=== PATIENT | female | born 1995 | race Caucasian/White ===

== ENCOUNTER 2017-07-01 19:46 | Emergency (ER) | payer OTHER ==
[~2017-07-01] VITALS: Ht 162.6 cm; Wt 84.5 kg
[~2017-07-01 19:46] MED LIST: DOCUSATE SODIU100 MG PO; ENDOCET 5-3251 EACH PO; IBUPROFEN800 MG PO; PRENATAL TABLE1 EAC3 PO
[2017-07-01 20:17] LABS: HEMATOCRIT 35.2 % (36.0-46.0); HEMOGLOBIN 11.6 G/DL (11.9-15.5); PLATELET COUNT 277 K/uL (156-360); RBC DIS.WIDTH-CV 14.2 % (11.8-14.6); RBC DIS.WIDTH-SD 45.7 % (39-53); WHITE BLOOD COUNT 6.9 K/uL (4.1-10.2)
[2017-07-02] MEDS ORDERED: MOTRIN800 MG PO (00:19)
[2017-07-02 00:40] VITALS: BP 130/85
== END 2017-07-02 00:40 | disposition home or self-care (01) ==
LOC: RME 19:46 → EME 19:46 → RME 07-02 00:40
PROVIDERS: Physician Assistant
DX: O04.6 Delayed or excessive hemorrhage following (induced) termination of pregnancy (principal); R42 Dizziness and giddiness; F17.200 Nicotine dependence, unspecified, uncomplicated
CPT/HCPCS: 76856; 84702; 85027; 99281; 99285; J1885; J3010

== ENCOUNTER 2017-07-30 18:22 | Emergency (ER) | payer OTHER ==
[~2017-07-30] VITALS: Ht 162.6 cm; Wt 77.4 kg
[~2017-07-30 18:22] MED LIST changes: +MOTRIN800 MG PO
[2017-07-30] MEDS ORDERED: NARCAN4 MG NS (22:46)
[2017-07-30 23:15] VITALS: BP 125/79
== END 2017-07-30 23:16 | disposition home or self-care (01) ==
LOC: EME 18:22
DX: T40.1X1A Poisoning by heroin, accidental (unintentional), initial encounter (principal); R00.0 Tachycardia, unspecified; F17.200 Nicotine dependence, unspecified, uncomplicated
CPT/HCPCS: 99281; 99285; J2310; J7040

== ENCOUNTER 2017-08-29 02:01 | Emergency (ER) | payer OTHER ==
[~2017-08-29] VITALS: Ht 162.6 cm; Wt 80.1 kg
[~2017-08-29 02:01] MED LIST changes: +NARCAN4 MG NS
[2017-08-29 02:22] LABS: HEMATOCRIT 37.4 % (36.0-46.0); HEMOGLOBIN 12.3 G/DL (11.9-15.5); MCH 28.3 PG (29.0-34.0); MCHC 32.9 G/DL (30.0-36.0); MCV 86.2 FL (83-99); PLATELET COUNT 271 K/uL (156-360); RBC DIS.WIDTH-SD 40.8 % (39-53); RED BLOOD COUNT 4.34 M/uL (3.80-5.20); WHITE BLOOD COUNT 7.6 K/uL (4.1-10.2)
[2017-08-29 02:35] LABS: CHLORIDE 108 mEq/L (99-109); POTASSIUM 3.6 mEq/L (3.7-5.4); SODIUM 141 mEq/L (136-147)
[2017-08-29 02:37] LABS: GLUCOSE 101 mg/dL (70-99)
[2017-08-29 02:40] LABS: CREATININE 0.7 mg/dL (0.6-1.3); GFR ESTIMATE (CALCULATED) > 59 mL/min/
[2017-08-29 02:41] LABS: UREA NITROGEN (BUN) 11 mg/dL (9-23)
[2017-08-29 02:49] LABS: QUANTITATIVE HCG < 4.0 MIU/ML
[2017-08-29 03:11] LABS: D-DIMER ELISA < 150.00 ng/mLDDU (<230)
[2017-08-29] MEDS ORDERED: SUDAFED PE PRE1 EAC1 PO (03:40)
[2017-08-29 03:49] VITALS: BP 118/80
== END 2017-08-29 04:16 | disposition home or self-care (01) ==
LOC: EME 02:01
DX: R07.89 Other chest pain (principal); N63.20 Unspecified lump in the left breast, unspecified quadrant; J01.90 Acute sinusitis, unspecified
CPT/HCPCS: 71046; 80048; 84702; 85027; 85379; 93005; 94640; 99281; 99284; J1885

== ENCOUNTER 2018-02-10 23:48 | Emergency (ER) | payer SELFPAY ==
[~2018-02-10] VITALS: Ht 162.6 cm; Wt 76.6 kg
[~2018-02-10 23:48] MED LIST changes: +SUDAFED PE PRE1 EAC1 PO
[2018-02-11 01:04] LABS: HEMATOCRIT 34.8 % (36.0-46.0); HEMOGLOBIN 11.3 G/DL (11.9-15.5); MCH 28.2 PG (29.0-34.0); MCHC 32.5 G/DL (30.0-36.0); MCV 86.8 FL (83-99); PLATELET COUNT 244 K/uL (156-360); RBC DIS.WIDTH-CV 13.6 % (11.8-14.6); RBC DIS.WIDTH-SD 43.5 % (39-53); RED BLOOD COUNT 4.01 M/uL (3.80-5.20); WHITE BLOOD COUNT 7.8 K/uL (4.1-10.2)
[2018-02-11 01:16] LABS: CHLORIDE 105 mEq/L (99-109); POTASSIUM 3.9 mEq/L (3.7-5.4); SODIUM 138 mEq/L (136-147)
[2018-02-11 01:18] LABS: APPEARANCE CLOUDY ((CLEAR)); BILIRUBIN NEGATIVE; BLOOD NEGATIVE; COLOR YELLOW ((YELLOW)); GLUCOSE (STRIP) NEGATIVE; KETONES NEGATIVE; LEUKOCYTES TRACE; NITRITE NEGATIVE; PROTEIN (STRIP) NEGATIVE; SPECIFIC GRAVITY 1.016 (1.000-1.030); UROBILINOGEN 0.2 MG/DL (0.2-1.0)
[2018-02-11 01:18] LABS: GLUCOSE 85 mg/dL (70-99)
[2018-02-11 01:22] LABS: BACTERIA RARE /HPF; EPITHELIAL CELLS 3+ /HPF; MUCUS TRACE /LPF; RED BLOOD CELLS 0-5 /HPF (0-5); UCUL ADDED? YES
[2018-02-11 01:22] LABS: CREATININE 0.6 mg/dL (0.6-1.3); GFR ESTIMATE (CALCULATED) > 59 mL/min/
[2018-02-11 01:23] LABS: UREA NITROGEN (BUN) 9 mg/dL (9-23)
[2018-02-11] MEDS ORDERED: KEFLEX500 MG PO (01:52)
[2018-02-11 02:10] VITALS: BP 112/80
== END 2018-02-11 02:11 | disposition home or self-care (01) ==
LOC: EME 23:48
PROVIDERS: Emergency Medicine
DX: O23.12 Infections of bladder in pregnancy, second trimester (principal); N30.00 Acute cystitis without hematuria; O98.512 Other viral diseases complicating pregnancy, second trimester; B34.9 Viral infection, unspecified; O99.512 Diseases of the respiratory system complicating pregnancy, second trimester; J20.9 Acute bronchitis, unspecified; Z3A.24 24 weeks gestation of pregnancy
CPT/HCPCS: 71045; 80048; 81003; 85027; 87086; 94640; 99281; 99284